=== PATIENT | male | born 1980 | race American Indian/Alaskan Native ===

== ENCOUNTER 2019-09-11 09:03 | Emergency (ER) | payer BC, OTHER ==
[2019-09-11 09:25] VITALS: BP 132/83; PULSE 85; TEMP 98.3; BMI 22.7
[2019-09-11] MEDS ORDERED: NAPROXEN 500 MG TABLET (FP) PO ONE (09:54)
--- NOTE | 2019-09-11 09:57 | PDOC ---
History of Present Illness - General Chief Complaint: Pain Stated Complaint: LEFT LOWER BACK PAIN Time Seen by Provider: 09/11/19 09:04 - History of Present Illness Initial Comments: 09/11/19 09:57 38 M with no PMH presents to ED for L hip pain x 2 months. Pt denies any falls or trauma. Denies any heavy lifting. States that he has had intermittent pain in his L hip and lower back. Describes it as a dull pain that is worse with standing and ambulation and relieved by sitting or lying down. Denies weakness/ numbness in any extremity. Denies any F/C. Denies incontinence. Pt states that the pain sometimes radiates down his leg. Denies any limitation in the ROM of his hip. Pain is not reproducible with bending. Past History - Past Medical History Allergies/Adverse Reactions: Allergies Allergy/AdvReac Type Severity Reaction Status Date / Time No Known Allergies Allergy Verified 09/11/19 09:04 Home Medications: Ambulatory Orders Naproxen 500 mg PO BID PRN #14 tablet 09/11/19 COPD: No - Psycho Social/Smoking Cessation Hx Smoking History: Never smoked Have you smoked in the past 12 months: No Information on smoking cessation initiated: No Hx Alcohol Use: No Drug/Substance Use Hx: No Review of Systems - Review of Systems Comments:: 09/11/19 10:01 "GENERAL/CONSTITUTIONAL: No fever or chills. No weakness. HEAD, EYES, EARS, NOSE AND THROAT: No change in vision. No ear pain or discharge. No sore throat. CARDIOVASCULAR: No chest pain, no shortness of breath, no loss of consciousness RESPIRATORY: No cough, wheezing, or hemoptysis. GASTROINTESTINAL: No nausea, vomiting, diarrhea or constipation. GENITOURINARY: No dysuria, frequency, or change in urination. MUSCULOSKELETAL: + L hip pain, L lower back pain SKIN: No rash NEUROLOGIC: No vertigo, no change in strength/sensation. ENDOCRINE: No increased thirst. No abnormal weight change. HEMATOLOGIC/LYMPHATIC: No anemia, easy bleeding, or history of blood clots. ALLERGIC/IMMUNOLOGIC: No hives or skin allergy. *Physical Exam - Vital Signs Last Vital Signs Temp Pulse Resp BP Pulse Ox 98.3 F 85 20 132/83 99 09/11/19 09:04 09/11/19 09:04 09/11/19 09:04 09/11/19 09:04 09/11/19 09:04 - Physical Exam Comments: 09/11/19 10:01 "GENERAL: Awake, alert, and fully oriented, in no acute distress. HEAD: No signs of trauma EYES: PERRLA, EOMI, sclera anicteric, conjunctiva clear ENT: Auricles normal inspection, hearing grossly normal, nares patent, oropharynx clear without exudates. Moist mucosa NECK: Nontender, no stepoffs, Normal ROM, supple, no lymphadenopathy, JVD, or masses LUNGS: Breath sounds equal, clear to auscultation bilaterally. No wheezes, and no crackles HEART: Regular rate and rhythm, normal S1 and S2, no murmurs, rubs or gallops ABDOMEN: Soft, nontender, normoactive bowel sounds. No guarding, no rebound. No masses EXTREMITIES: + mild TTP L hip, Normal range of motion, negative straight leg raise. no edema. No clubbing or cyanosis. No cords, erythema NEUROLOGICAL: Cranial nerves II through XII intact. 5/5 strength and sensation in all extremities, Normal speech, normal gait, normal cerebellar function SKIN: Warm, Dry, normal turgor, no rashes or lesions noted. : normal scrotal exam Medical Decision Making - Medical Decision Making 09/11/19 10:02 38 M with L hip pain x 2 months. Pain only with standing and walking. No pain at rest. Suspect bursitis vs sciatic nerve. No evidence of cauda equina/cord compression. No CVAT to suggest renal colic. No masses to suggest inguinal hernia. No evidence of torsion on exam. No abdominal masses or pulsatile masses to suggest AAA. Distal pulses intact. - NSAIDs and rest - f/u ortho Pt is well appearing, with normal vitals. Clinically stable for DC at this time. I discussed the physical exam findings, ancillary test results and final diagnoses with the patient. I answered all of the patient's questions. The patient was satisfied with the care received and felt comfortable with the discharge plan and treatment plan. The patient agrees to follow up with the primary care physician within 24-72 hours. Discharge - Discharge Information Problems reviewed: Yes Clinical Impression/Diagnosis: Hip pain, left, Lower back pain, Bursitis Disposition: HOME - Additional Discharge Information Prescriptions: Naproxen 500 mg PO BID PRN #14 tablet PRN Reason: Pain - Follow up/Referral Referrals: Juan Manuel Barnhart MD [Staff Physician] - - Patient Discharge Instructions Patient Printed Discharge Instructions: DI for Hip Pain Additional Instructions: Your hip pain is likely due to a condition called bursitis. It may also be due to your sciatic nerve. Take the naproxen as prescribed and avoid excessive activity. If you do not notice any improvement in your pain, follow up with an orthopedist for further evaluation. Call the number provided or ask your primary doctor for a referral. If you experience worsening pain, weakness or numbness in your leg, difficulty walking, or any other concerning symptoms, return to the ER immediately. - Post Discharge Activity
[2019-09-11] MEDS ORDERED: NAPROXEN 500 MG TABLET (FP) ONE (10:01)
== END 2019-09-11 10:08 | disposition home or self-care (01) ==
LOC: FER 09:03
DX: M25.552 Pain in left hip (principal); M54.5 Low back pain; M71.9 Bursopathy, unspecified
CPT/HCPCS: 99282-25